=== PATIENT | female | born 1965 | race Two or more races ===

== ENCOUNTER 2024-11-29 02:38 | Emergency (ER) | payer MEDICARE, OTHER ==
[~2024-11-29] VITALS: Ht 162.6 cm; Wt 50.1 kg
--- NOTE | 2024-11-29 03:58 | DVH ---
EXAM: CT CERVICAL WITHOUT CONTRAST HISTORY: STATUS POST FALL INJURY PAIN COMPARISON: None CTDIvol 9.03 mGy, DLP 242.59 mGy*cm. TECHNIQUE: Multiple axial CT images of the spine were obtained using bone algorithm. Axial and coron al reformatting was done. Bone and soft tissue windows were reviewed. FINDINGS: No CT evidence of definite acute fracture, spinal dislocation, or significant appearing acute subluxa tion is seen. The visualized paraspinal soft tissues are grossly unremarkable. Mild multilevel degenerative change includes disc height loss with adjacent endplate sclerosis and mu ltilevel anterior osteophytosis. Mild multilevel bilateral facet hypertrophy. IMPRESSION: 1. No definite CT evidence of acute fracture or dislocation of the bony cervical spine. 2. Degenerative change of the cervical spine.
--- NOTE | 2024-11-29 04:05 | ED.PDOC ---
Back pain HPI HPI Comments 59-YEAR-OLD FEMALE PRESENTS TO THE ED CHIEF COMPLAINT POSTERIOR NECK PAIN. PATIENT REPORTS FELL BACKWARD ON SUNDAY SINCE HAS NECK PAIN WORSE ON THE RIGHT. SHE NOTES SOME SHOOTING PAIN NUMBNESS AND WEAKNESS 10/10 INTO LEFT SHOULDER AND ARM. DENIES WEAKNESS, FEVER, CHILLS, ANY OTHER KNOWN SYMPTOMS. Chief Complaint: Neck Injury Time Seen by MD: 02:41 Reviewed Notes: Nurses Notes, Medications, Allergies Information Source: Patient Mode of Arrival: Ambulatory Past Medical History PAST MEDICAL HISTORY: Denies Surgical History: Denies all surgeries WATER SAFETY TEACHER History: No Pertinent WATER SAFETY TEACHER History Family History Family History: Unknown Social History Smoker: Non-Smoker Alcohol: Denies ETOH Use Drugs: Denies Drug Use All Other Systems: Reviewed and Negative (see hpi) Physical Exam General Appearance: No Apparent Distress, Normal HEENT: Pharynx Normal Neck: Limited Range of Motion, Tender Lateral (Moderate tenderness bilateral on resistance) Respiratory: Chest Non-Tender, Lungs Clear, No Accessory Muscle Use, No Respiratory Distress, Normal Breath Sounds Cardiovascular: No Edema, No JVD, No Murmur, No Gallop, Normal Peripheral Pulses, Regular Rate/Rhythm Breast Exam: Deferred Gastrointestinal: No Organomegaly, Non Tender, No Pulsatile Mass, Normal Bowel Sounds, Soft Genitalia: Deferred Pelvic: Deferred Rectal: Deferred Extremities: Normal capillary refill, No pedal edema Musculoskeletal : Apperance: Normal Neurologic: Alert, No Motor Deficits, Normal Affect, Normal Mood, No Sensory Deficits Cerebellar Function: Normal Reflexes: Normal Skin: Dry, Normal Color, Warm Lymphatic: No Adenopathy Was a procedure done? Was a procedure done?: No Back Pain Differential Dx Differential Diagnosis: Fracture, Musculoskeletal Pain, Strain X-Ray, Labs, Meds, VS Vital Signs Date Time Temp Pulse Resp B/P (MAP) Pulse Ox O2 Delivery O2 Flow Rate FiO2 11/29/24 02:40 98.8 96 18 156/81 96 98.8 X-Ray, Labs, Meds, VS Comment FINDINGS: No CT evidence of definite acute fracture, spinal dislocation, or significant appearing acute subluxation is seen. The visualized paraspinal soft tissues are grossly unremarkable. Mild multilevel degenerative change includes disc height loss with adjacent endplate sclerosis and multilevel anterior osteophytosis. Mild multilevel bila teral facet hypertrophy. IMPRESSION: 1. No definite CT evidence of acute fracture or dislocation of the bony cervical spine. 2. Degenerative change of the cervical spine. Cervical CT shows no acute fractures osseous lesions or subluxations. Likely ce rvical strain. Patient was given Toradol 60 mg IM and [place] [facility] reports improvement in pain and function requesting discharge at this time. Script trial of anti-inflammatory and muscle relaxer advised take medication as prescribed side effects discussed advised to rest alternate between ice and heat follow up with your PCP in 2-3 days as necessary consider further imaging such as MRI if symptoms persist ER return precautions given patient indicates understanding agrees with discharge plan of care. Time of 1ST Reevaluation: 02:41 Reevaluation 1ST: Unchanged Time of 2ND Reevaluation: 04:02 Reevaluation 2ND: Improved Patient Education/Counseling: Diagnosis, Treatment, Need For Follow Up Family Education/Counseling: Diagnosis, Treatment, Need For Follow Up SEPSIS Sepsis Screen Date sepsis recognized/suspect: Nov 29, 2024 Time Sepsis recognized/suspect: 243 Recent Procedure: No On Antibiotic Therapy: No Respiratory Rate >20: No Heart Rate >90: No Temp<36 C (96.8 F) or >38.3 C: No SBP <90 or MAP <65 mmHG: No New Acute Mental Status Change: No Is the patient on CPAP, BIPAP,: No Physician Orders Cervical Without Contrast (11/29/24 02:54) Vital Signs Date Time Temp Pulse Resp B/P (MAP) Pulse Ox O2 Delivery O2 Flow Rate FiO2 11/29/24 02:40 98.8 96 18 156/81 96 98.8 Departure 1 Departure Time of Disposition: 04:01 Impression: Primary Impression: Cervical muscle strain Qualified Codes: S16.1XXA - Strain of muscle, fascia and tendon at neck level, initial encounter Disposition: 01 HOME / SELF CARE / HOMELESS Condition: Stable Discharged With: Significant Other Critical Care Note Critical Care Time?: No Stability Stability form required: KATEY Feliz Nov 29, 2024 04:05
[2024-11-29 06:18] VITALS: BP 121/69; TEMP 97.8; O2SAT 99
[2024-11-29] MEDS: HYDROcodone-ACET 5/325MG TAB PO ONE (06:34)
[2024-11-29] MEDS: KETOROLAC TROMETH 60MG/2ML VIAL IM ONE (06:42)
[2024-11-29 06:45] VITALS: PULSE 69; RESP 16
== END 2024-11-29 06:52 | disposition home or self-care (01) ==
LOC: ER 02:38 → EDBD 02:38 → ER 06:52
DX: S16.1XXA Strain of muscle, fascia and tendon at neck level, initial encounter (principal); W19.XXXA Unspecified fall, initial encounter; Y93.89 Activity, other specified; Y92.89 Other specified places as the place of occurrence of the external cause; Y99.8 Other external cause status
CPT/HCPCS: 72125; 96372; 99285; J1100; J1885